=== PATIENT | female | born 1975 | race African-American/Black ===

== ENCOUNTER 2018-03-04 19:44 | Emergency (ER) | payer OTHER, SELFPAY | END 2018-03-04 21:08 | disposition home or self-care (01) | LOC: ERS 19:44 | DX: L03.116 Cellulitis of left lower limb (principal); F17.210 Nicotine dependence, cigarettes, uncomplicated | CPT/HCPCS: 99283 ==

== ENCOUNTER 2022-02-07 13:55 | Outpatient (CLI) | payer OTHER | END 2022-02-07 13:56 | disposition home or self-care (01) | LOC: BICRAD 13:55 | PROVIDERS: ATTEND Internal Medicine | DX: Z02.71 Encounter for disability determination (principal); M51.37 Other intervertebral disc degeneration, lumbosacral region | CPT/HCPCS: 72100 ==